=== PATIENT | female | born 1950 | race Caucasian/White ===

== ENCOUNTER → 2018-10-29 | Outpatient (CLI) | payer MEDICARE, OTHER ==
--- NOTE | 2018-10-29 12:17 | Diagnostic Imaging Report ---
PROCEDURE: CT abdomen and pelvis without contrast. TECHNIQUE: Multiple contiguous axial images were obtained through the abdomen and pelvis without the use of intravenous contrast. Auto Exposure Controls were utilized during the CT exam to meet ALARA standards for radiation dose reduction. INDICATION: Urinary tract infections for 5 months. COMPARISON: No prior studies are available for comparison. FINDINGS: Imaging through the lung bases demonstrate some scarring in the right middle lobe and lingula. Numerous circumscribed low density masses throughout the liver are identified, suggestive of cysts. Gallbladder is unremarkable. No biliary duct dilatation is seen. Pancreas and spleen are unremarkable. No adrenal mass is detected. Kidneys contain multiple tiny cortical densities consistent with a combination of simple and hemorrhagic cysts. No calculi or hydronephrosis is identified. Aorta is nonaneurysmal. Note is made of a small fat containing umbilical hernia. Small and large bowel loops appear to be normal caliber. No obstruction is seen. There is no ascites. Unopacified bladder is unremarkable. No definite abdominal or pelvic lymphadenopathy is detected. There is diverticulosis of the descending colon and sigmoid but no acute diverticulitis. Bony structures are nonacute. IMPRESSION: 1. Polycystic hepatic disease. There are also multiple small bilateral renal cysts, several of which are hyperdense and likely hemorrhagic. No definite hydronephrosis is seen. 2. Uncomplicated diverticulosis. 3. Small fat-containing umbilical hernia. Dictated by: Dictated on workstation # [id number]
== END ==
LOC: RAD 11:12
PROVIDERS: ATTEND Urology
DX: N39.0 Urinary tract infection, site not specified (principal); N28.1 Cyst of kidney, acquired; K57.30 Diverticulosis of large intestine without perforation or abscess without bleeding; K42.9 Umbilical hernia without obstruction or gangrene; Q44.6 Cystic disease of liver; Z87.442 Personal history of urinary calculi
CPT/HCPCS: 74176

== ENCOUNTER → 2018-11-10 | Outpatient (CLI) | payer MEDICARE, OTHER ==
--- NOTE | 2018-11-10 17:21 | Diagnostic Imaging Report ---
PROCEDURE: US renal, bilateral. TECHNIQUE: Multiple real-time grayscale images were obtained over the kidneys in various projections, bilaterally. INDICATION: Renal cysts. FINDINGS: Right kidney measures 10.5 x 5.4 x 6.0 cm. Left kidney measures 11.9 x 6.1 x 5.6 cm. There is no solid mass or calculus seen in either kidney. There are small cysts in both kidneys. The largest in the right kidney measures 1.2 x 0.8 x 1.5 cm. The largest in the left kidney measures 1.1 x 1.9 x 1.6 cm. Urinary bladder appears normal with both ureteral jets visualized. IMPRESSION: Small renal cysts. Renal ultrasound otherwise unremarkable. Dictated by: Dictated on workstation # [id number]
== END ==
LOC: RAD 11:43
PROVIDERS: ATTEND Urology
DX: N28.1 Cyst of kidney, acquired (principal)
CPT/HCPCS: 76770

== ENCOUNTER → 2021-04-02 | Outpatient (CLI) | payer MEDICARE, OTHER | LOC: CARD 15:00 | PROVIDERS: ATTEND Internal Medicine Cardiovascular Disease | DX: I10 Essential (primary) hypertension (principal); R07.2 Precordial pain; I25.10 Atherosclerotic heart disease of native coronary artery without angina pectoris; I34.0 Nonrheumatic mitral (valve) insufficiency | CPT/HCPCS: 93306 ==

== ENCOUNTER → 2021-05-08 | Outpatient (CLI) | payer MEDICARE, OTHER ==
[~2021-05-08] MED LIST: CATHETER FLUSH 10 ML SYR IV PRN; REGADENOSON 0.4 MG/5 ML SYR (LEXISCAN) IV ONE
[2021-05-08 09:05] VITALS: BP 168/104
--- NOTE | 2021-05-08 11:15 | Cardiology Stress Test Report ---
Stress Test Report Date of Procedure/Referring: Date of Procedure: May 08, 2021 PCP Dolly Ramirez MD Admitting Physician Caryn Reed DO Indications: Hypertension Baseline Heart Rate: 71 Baseline Blood Pressure: Blood Pressure Systolic: 168 Blood Pressure Diastolic: 104 Baseline Vitals Vital Signs Date Time Temp Pulse Resp B/P (MAP) Pulse Ox O2 Delivery O2 Flow Rate FiO2 05/08/21 09:05 71 168/104 (125) 98 Baseline EKG: Baseline EKG: NSR Summary After explaining the procedure to the patient, she signed a consent and then brought to the stress nuclear laboratory. Patient received 0.4 mg Lexiscan for stress test, ECG, heart rate and blood pressure were monitored continuously. Resting and stress dose of radio tracer were injected, imaging was acquired and reviewed in short axis, horizontal long axis and vertical long axis views. TID: 1.14 SSS: 6 SDS: 5 EF: 61 1. Patient tolerated Lexiscan well 2. Baseline sinus rhythm with right bundle branch block and occasional atrial premature contractions 3. Breast attenuation with reversible ischemia involving the mid to apical anterolateral and inferolateral wall, it could be secondary to the breast attenuation 3. Normal left ventricular size, EF 61% DOLLY RAMIREZ MD May 08, 2021 11:15
== END ==
LOC: CARD 08:00
PROVIDERS: ATTEND Internal Medicine Cardiovascular Disease
DX: I45.10 Unspecified right bundle-branch block (principal); I11.9 Hypertensive heart disease without heart failure; I25.10 Atherosclerotic heart disease of native coronary artery without angina pectoris; I25.89 Other forms of chronic ischemic heart disease
CPT/HCPCS: 78452; 93017; A9502

== ENCOUNTER 2021-05-22 13:00 | Day surgery (SDC) | payer MEDICARE, OTHER ==
[2021-05-22] VITALS (12 sets, daily range): BP systolic 103–148; BP diastolic 68–105
[~2021-05-22] VITALS: Ht 177.8 cm; Wt 100.7 kg
[2021-05-22 11:34] LABS: BILIRUBIN,URINE NEGATIVE (NEGATIVE); CLARITY,URINE CLEAR; COLOR,URINE YELLOW; GLUCOSE, URINE (UA) NEGATIVE (NEGATIVE); KETONES,URINE NEGATIVE (NEGATIVE); LEUKOCYTE ESTERASE ,URINE NEGATIVE (NEGATIVE); NITRITE,URINE NEGATIVE (NEGATIVE); PH,URINE 6.5 (5-9); PROTEIN,URINE NEGATIVE (NEGATIVE)
[2021-05-22 11:34] LABS: HEMATOCRIT 40 % (35-52); HEMOGLOBIN 13.5 g/dL (11.5-16.0); MEAN CORPUSCULAR HEMOGLOBIN 31 pg (25-34); MEAN CORPUSCULAR HGB CONC 34 g/dL (32-36); MEAN CORPUSCULAR VOLUME 91 fL (80-99); MEAN PLATELET VOLUME 9.3 fL (9.0-12.2); PLATELET COUNT 278 10^3/uL (130-400); WHITE BLOOD COUNT 6.7 10^3/uL (4.3-11.0)
--- NOTE | 2021-05-22 11:38 | Diagnostic Imaging Report ---
INDICATION: Preop for heart catheterization, coronary artery disease. COMPARISON: None. FINDINGS: Single view of the chest demonstrates slight cardiac enlargement. Lungs are clear. There is no pneumothorax. Osseous structures are normal. IMPRESSION: Slight cardiac enlargement without pulmonary edema or acute infiltrate. Dictated by: Dictated on workstation # [id number]
[2021-05-22 11:42] LABS: BACTERIA,URINE NEGATIVE /HPF; RBC,URINE RARE /HPF; SQUAMOUS EPITHELIAL CELL,UR 0-2 /HPF
--- NOTE | 2021-05-22 11:57 | Conscious Sedation/ASA ---
Conscious Sedation Pre-Proced Time 11:57 ASA Score 3 For ASA 3 and 4: Consider anesthesia and medical clearance. Also, for patients with a history of failed moderate sedation consider anesthesia. Airway Lungs Heart ASA score ASA 1: a normal healthy patient ASA 2: a patient with a mild systemic disease (mid diabetes, controlled hypertension, obesity x ASA 3: a patient with a severe systemic disease that limits activity (angina, COPD, prior Myocardial infarction) ASA 4: a patient with an incapacitating disease that is a constant threat to life (CHF, renal failure) ASA 5: a moribund patient not expected to survive 24 hrs. (ruptured aneurysm) ASA 6: a declared brain- patient whose organs are being harvested. For emergent operations, add the letter E after the classification Mallampati Classification Grade 3 Sedation Plan Analgesia, Amnesia, Plan communicated to team members, Discussed options with patient/fam, Discussed risks with patient/fam The patient is an appropriate candidate to undergo the planned procedure, sedation, and anesthesia. The patient immediately re-assessed prior to indication. DOLLY GLEASON MD May 22, 2021 11:57
[2021-05-22 11:59] LABS: INR 0.9 (0.8-1.4); PROTHROMBIN TIME PATIENT 12.8 SEC (12.2-14.7)
[2021-05-22 12:00] LABS: ALBUMIN 4.1 GM/DL (3.2-4.5); BILIRUBIN,TOTAL 0.7 MG/DL (0.1-1.0); CALCIUM 9.3 MG/DL (8.5-10.1); CREATININE SERUM 0.76 MG/DL (0.60-1.30); POTASSIUM 3.9 MMOL/L (3.6-5.0); TOTAL PROTEIN 7.2 GM/DL (6.4-8.2)
--- NOTE | 2021-05-22 12:49 | Discharge Inst-Post CATH ---
Discharge Inst-CATH/EP Problems Reviewed?: Yes Post Cardiac Cath/EP D/C Inst Follow Up/Plan Appointment with Dr. Ramirez's office in 2 to 4 weeks <b>CARDIAC CATH/EP PROCEDURE DISCHARGE INSTRUCTIONS</b> ACTIVITY * Go Home directly and rest. * Limit activity of the leg (or wrist if it was used) for 7 days including aer obics, swimming, jogging, bicycling, etc. * Restrict stair-climbing for 7 days if possible, if not, climb up with your non-cath leg, then bring together on the same step. * Avoid lifting, pushing, pulling or excessive movement of the affected extremi ty for 7 days. * Customary sexual activity may be resumed after 2 days-use caution not to use a position that strains or causes pain to the affected extremity. * No driving for 24 hours. * NO SMOKING. * Avoid straining for bowel movements for 7 days. * Gentle walking on level ground is allowed. * Returning to work will depend on the type of procedure and the results. Your doctor will discuss this with you. CALL YOUR DOCTOR FOR ANY OF THE FOLLOWING: *If bleeding from the puncture site occurs- Apply gentle pressure to site with clean cloth and call your doctor or EMS. * If a knot or lump forms under the skin, increases in size, or causes pain. * If bruising appears to be worsening or moving further down your leg instead of disappearing. * Temperature above 101 F. CARE OF YOUR GROIN INCISION; * Bruising or purple discoloration of the skin near the puncture site is common. * You may shower only, no bathtub bathing for 5 days. Be careful to avoid slipping as your leg may feel stiff. * If a closure device was used on your femoral artery, please see the attached guide regarding care of the device and your leg. * Leave dressing on FOR 24 hours. CARE OF YOUR WRIST INCISION; * Bruising or purple discoloration of the skin near the puncture site is common. * You may shower. * DO NOT submerge wrist. * Leave dressing on FOR 24 hours. DOLLY RAMIREZ MD May 22, 2021 12:49
--- NOTE | 2021-05-22 12:51 | Cardiac Cath Report ---
Cardiac Cath Report Physician (s)/Travel Manager (s) Physician DOLLY GLEASON MD Pre-Procedure Diagnosis Pre-Procedure Diagnosis: Coronary artery disease Post-Procedure Note Procedure Start Date: May 22, 2021 Name of Procedure: Left heart catheterization Findings/Procedure Note PROCEDURE NOTE: 71-year-old lady with history of hypertension, hyperlipidemia, had an abnormal stress test, scheduled for cardiac catheterization possible PTCA. After explaining the procedure to the patient, all pros and cons were explained, all questions were answered. The patient signed the consent and then she was placed on the cardiac catheterization laboratory. Groin was prepped SL fashion local anesthesia was used. Sheath placed in the right radial artery, Kihei catheter was advanced and engaged the right and left coronary system, angiogram was done. At the end of the procedure the sheath was removed. Vascular band was used FINDINGS: ANATOMY: Left Main is free of obstructive disease Left Anterior Descending is free of obstructive disease Left Circumflex is free of obstructive disease Right Coronary Artery is large dominant artery, mildly tortuous with mild disease distally CONCLUSION: 1. Mild coronary artery disease nonobstructive disease DISCUSSION AND RECOMMENDATION: Medical therapy is recommended no intervention is warranted. Anesthesia Type: Conscious Sedation Estimated blood loss (mL): 10 ml Contrast Amount: 30 ml Total Radiation Dose: 309 mGy Post-Procedure Diagnosis Post-operative diagnosis: Chest pain Coronary artery disease Hypertension HLD DOLLY GLEASON MD May 22, 2021 12:51
[~2021-05-22 13:00] MED LIST changes: +ACET325T38 PO; +ATOR10TA66 PO; -CATHETER FLUSH 10 ML SYR IV PRN; +CETI10TA17 PO; +CHOL-11 PO; +FOLI0.4T6 PO; +GLUC1TAB20 PO; +HEParin (CATH LAB) 2,000 ML IV ONE; +HEParin 1000 UNIT/ML (10ML VIAL) FOR BOLUS ONE; +LIDOCAINE 1% INJ 20 ML 20 ML VIAL ONE; +LUTE20TA PO; +MAGN400T39 PO; +MELO15TA39 PO; +NITR-65 PO; +NITRO DRIP 25000 MCG/D5W 250 ML IV ONE; +NS IV 1000 ML 1,000 ML IV SCH; +OMG1KC PO; +ONDANSETRON 4 MG/2 ML (SDV) Z0FRAN ONE; +OXYB10TA29 PO; +PANT40TA52 PO; -REGADENOSON 0.4 MG/5 ML SYR (LEXISCAN) IV ONE; +RIZA10TA37 PO; +UBID300C PO; +VERAPAMIL 5 MG/2 ML (CALAN) VIAL IV ONE; +VITA100T8 PO; +[UNRECOGNIZED DRUG - CODE] PO; +diphenhydrAMINE 50 MG/ML INJ (BENADRYL) ONE
== END 2021-05-22 14:10 | disposition home or self-care (01) ==
LOC: CATH 13:00 → CSD 13:01 → CATH 14:10
PROVIDERS: ATTEND Internal Medicine Cardiovascular Disease
DX: I25.10 Atherosclerotic heart disease of native coronary artery without angina pectoris (principal); I45.10 Unspecified right bundle-branch block; I10 Essential (primary) hypertension; R60.0 Localized edema; J44.9 Chronic obstructive pulmonary disease, unspecified; G47.33 Obstructive sleep apnea (adult) (pediatric); Q61.3 Polycystic kidney, unspecified; Q44.6 Cystic disease of liver; E66.9 Obesity, unspecified; E78.2 Mixed hyperlipidemia; Z79.899 Other long term (current) drug therapy; Z87.891 Personal history of nicotine dependence; Z68.31 Body mass index [BMI] 31.0-31.9, adult
CPT/HCPCS: 36415; 71045; 80053; 80061; 81000; 85027; 85610; 85730; 87081; 93454